=== PATIENT | female | born 1980 | race Caucasian/White ===

== ENCOUNTER → 2018-05-27 | Outpatient (CLI) | payer OTHER | LOC: FIMAGING 09:22 | PROVIDERS: ATTEND Advanced Practice Midwife | DX: O44.43 Low lying placenta NOS or without hemorrhage, third trimester (principal); Z3A.36 36 weeks gestation of pregnancy ==

== ENCOUNTER 2018-07-07 19:58 | Inpatient (IN) | payer OTHER ==
[2018-07-07] MEDS ORDERED: OLIVE OIL 118 ML BTL ONE (20:04)
[2018-07-07] MEDS ORDERED: LIDOCAINE 1% 300 MG/30 ML SDV ONE (20:04)
[2018-07-07] MEDS ORDERED: MISOPROSTOL 200 MCG TAB ONE (20:05)
[2018-07-07] MEDS ORDERED: AMMONIA AROMATIC 1 EACH AMP IH ONE (20:05)
[2018-07-07] MEDS ORDERED: OXYTOCIN 10 UNIT/ML VIAL ONE (20:05)
[2018-07-07] MEDS ORDERED: TERBUTALINE SULFATE 1 MG/ML VIAL ONE (20:05)
[2018-07-07] MEDS ORDERED: MISOPROSTOL 200 MCG TAB PR PRN (20:09)
[2018-07-07] MEDS ORDERED: TERBUTALINE SULFATE 1 MG/ML VIAL IV PRN (20:09)
[2018-07-07] MEDS ORDERED: IBUPROFEN 600 MG TAB PO PRN (20:09)
[2018-07-07] MEDS ORDERED: EPSOM SALT 454 GM TP PRN (20:09)
[2018-07-07] MEDS ORDERED: LIDOCAINE 1% 300 MG/30 ML SDV SC PRN (20:09)
[2018-07-07] MEDS ORDERED: LR 1,000 ML IV PRN (20:09)
[2018-07-07] MEDS ORDERED: OXYTOCIN/RINGERS LACTATE 1,000 ML IV PRN (20:09)
[2018-07-07] MEDS ORDERED: OLIVE OIL 118 ML BTL MISC PRN (20:09)
--- NOTE | 2018-07-07 20:33 | PDGENHP ---
History and Physical History and Physical: CARE: [facility] HPI: Patient is a 37 yo G 1 P 0 @ 40.5 weeks who is transferring to [facility] from [facility]. She entered into labor at 0230 on 07/07 and progressed well to complete at 1535 this afternoon. She has been pushing intermittently for past 4 hours with little descent. She presents to L&D for labor epidural for exhaustion. EDC: 07/02/18 which is based on LMP: 09/25/17 which is known and consistent with Ultrasound at 10 weeks. Her is complicated by: AMA >36 weeks. Review of Systems: Constitutional: Denies any fever, chills, or fatigue HEENT: denies any visual changes, difficulty swallowing, hearing loss Cardiovascular: Denies any chest pain, palpitations, leg swelling Respiratory: denies any cough, wheezing, or shortness of breathe GI: Denies any nausea, vomiting, diarrhea, constipation : denies any dysuria, urgency, frequency, vaginal bleeding Musculoskeletal: denies any muscle or bone pain Skin: denies any rashes Neuro: denies any headache, seizures, lightheadedness, dizziness, or loss of consciousness Psychiatric: denies any depression, anxiety, or SI/HI thoughts HISTORY: Previous OB history: nullip Social history: , manufacturing director Family history: MGM breast, liver CA, brother Anxiety, MGF heart disease, mother HTN Past medical history: uterine polyps Past surgical history: lumpectomy R breast benign, polypectomy/D&C, appendectomy Medications: PNV, Vit D, DHA Allergies (list reaction): NKDA LABS: Rh: O+ ABS: Neg Rubella: Immune HbsAg: NR HIV: NR VDRL: NR 1hr: 89 GC: Neg Chlamydia: Neg Pap: 2017 Normal, HR HPV GBS: Neg BMI: (prepreg) <30 PHYSICAL EXAM: Constitutional: WN, A&Ox3 HEENT: normocephalic atraumatic, supple Heart: RRR, no murmur Chest: CTA-B Skin: warm, dry, intact Abdomen: Soft, nontender, gravid SVE: 10/100/0 approximately 2 hours ago at [facility] Extremities: trace edema, negative homans sign Neuro: grossly normal Psych: normal affect assessment: FHT baseline 150, - accels, occasional late decels, mod variability, cat 2 Contractions: toco q 5-7 Assessment: 1) 37 yo G 1 P 0 with IUP@ 40.5 2) spontaneous onset labor 3) GBS neg 4) Cat 2 FHR tracing Plan: 1) Admit to L&D 2) epidural anesthesia 3) pitocin augmentation if necessary 4) anticipate , Dr. Sifuentes aware.
[2018-07-07] MEDS ORDERED: BUPIVACAINE 0.25% 30 ML SDV ONE (20:45)
[2018-07-07] MEDS ORDERED: PHENYLEPHRINE HCL 100 MCG/ML SYR ONE (20:46)
[2018-07-07 21:06] LABS: PLATELET COUNT 130 10^3/uL (150-400)
[2018-07-07] MEDS ORDERED: OXYTOCIN/RINGERS LACTATE 30 UNIT/500 ML BAG IV ONE (21:59)
[2018-07-07] MEDS ORDERED: OXYTOCIN/LR *STANDARD DOSE PROTOCOL IV SCH (22:30)
[2018-07-07] MEDS ORDERED: DOCUSATE SODIUM 100 MG CAP PO PRN (23:10)
[2018-07-07] MEDS ORDERED: HYDROCORTISONE 0.5% CREAM TP PRN (23:10)
--- NOTE | 2018-07-07 23:15 | OBDEL ---
Info Type: Vaginal Presentation at Delivery: Vertex (compound hand presentation) L&D Analgesia/Anesthesia Type: None GBS+: No Indications for Delivery: Spontaneous Labor, SROM (meconium) Vaginal Delivery - Delivery Provider Delivery Physician/CNM: Delmy Calixto - Labor and Delivery Onset of Contractions Date: 07/07/18 Onset of Contractions Time: 02:30 Onset of Contractions Type: Spontaneous Rupture of Membranes Date: 07/07/18 Rupture of Membranes Time: 14:30 Rupture of Membranes Type: Spontaneous Amniotic Fluid Color: Meconium Stained Dilation Complete Date: 07/07/18 Dilation Complete Time: 16:30 Placenta Delivery Date: 07/07/18 Placenta Delivery Time: 22:37 Total Hours of Labor: 20 Laceration: 2nd Degree Repair: 3-0, Chromic Vaginal Sponge Count Correct: Yes Vaginal Needle Count Correct: Yes Vaginal Sweep Performed: Yes Delivery Events: Retained Placenta (manually removed, velementous insertion of cord) Data VEENA: 07/01/18 Gestational Age: 40 week(s) and 6 day(s) Mata Delivery Date: 07/07/18 Delivery Time: 22:24 Sex of : Male Score (1 Min): 8 Score (5 Min): 9 ICD10 Worksheet Patient Problems: Problems Problem Status Onset (normal spontaneous vaginal delivery) Acute Prolonged labor with first Acute Term Acute - ICD10 Problem Qualifiers (1) (normal spontaneous vaginal delivery)
[2018-07-08] MEDS: ACETAMINOPHEN 325 MG TAB PO SCH ×3 (01:00→16:34)
[2018-07-08] MEDS: IBUPROFEN 600 MG TAB PO SCH ×4 (10:02→22:55)
--- NOTE | 2018-07-08 16:34 | OBPP ---
Progress Note Assessment/Plan: Assessment: [id number] s/p PPD#1 Plan: routine pp care support PRN anticipate d/c home tomorrow Subjective/ Course: 07/08/18 16:34 Pt doing well, she is - working with and will start pumping to increase stimulation. She denies any heavy bleeding or pain. She reports some soreness but overall feels good. Discussed experience- pt happy. Objective: 07/07/18 20:19 Patient ABO/Rh O POSITIVE 07/07/18 20:19 Temp Pulse Resp BP Pulse Ox 35.9 C L 86 18 112/72 96 07/08/18 08:00 07/08/18 08:00 07/08/18 08:00 07/08/18 08:00 07/08/18 03:10 Uterine Position/Fundal Height: Umbilicus -2, Midline Uterine Tone: Firm
[2018-07-08 20:38] VITALS: BP 110/68
[2018-07-09] MEDS: ACETAMINOPHEN 325 MG TAB PO SCH ×4 (05:13→18:51)
[2018-07-09] MEDS: IBUPROFEN 600 MG TAB PO SCH ×3 (05:13→17:58)
--- NOTE | 2018-07-09 10:58 | OBGCSDC ---
General Delivery Information - General Info : 1 Para: 1 Abortions: 0 Type: Vaginal L&D Analgesia/Anesthesia Type: Local Admission Date: 07/07/18 Labs: Patient ABO/Rh O POSITIVE 07/07/18 20:19 Hct 32.7 % (38.0-47.0) L 07/07/18 20:19 - Hospital Course : 07/08/18 16:34 Pt doing well, she is - working with and will start pumping to increase stimulation. She denies any heavy bleeding or pain. She reports some soreness but overall feels good. Discussed experience- pt happy. 07/09/18 10:56 S) Pt doing ok- states she is having some soreness in rectum due to hemorrhoids. She overall feels good. She is having some difficulty with , has short/flat nipples. Using shield. She reports minimal bleeding and pain. She is ambulating and voiding without difficulty. O) VSS, afebrile constitutional: WNF, A&Ox3 HEENT: normocephalic, atraumatic, supple Heart: RRR, No murmur Chest: CTA-B Breasts: soft, nontender, not engorged, nipples Abdomen: Soft, nontender Uterus: Firm at U-2 Lochia: Minimal rubra Perineum: Intact, healing well Extremities: Trace edema, and negative Dipti's sign Neuro: Grossly normal A) 37 -year-old S/P PPD#2 P) Discharge home today Continue Pelvic rest x6wks Discussed danger signs (infection, preeclampsia, depression, heavy bleeding, etc ) RTO in 2/4/6 weeks Vaginal - Delivery Provider Delivery Physician/CNM: Delmy Calixto - Diagnosis Labor: Spontaneous Rupture of Membranes Type: Spontaneous Amniotic Fluid Color: Meconium Stained Laceration: 2nd Degree Repair: 3-0, Chromic Delivery Events: Retained Placenta (manually removed, velementous insertion of cord) [place] Data VEENA: 07/01/18 Gestational Age: 41 week(s) and 1 day(s) Mata Delivery Date: 07/07/18 Delivery Time: 22:24 Sex of Infant: Male Score (1 Min): 7 Score (5 Min): 8 Discharge Information - Discharge Information Prescriptions: Ibuprofen [Motrin (*)] 600 mg PO Q6H #30 tab Condition: Good
== END 2018-07-09 18:40 | disposition home or self-care (01) | DRG 807 ==
LOC: FLD 19:58 → FOB 07-08 01:16
PROVIDERS: ADMIT Advanced Practice Midwife; ATTEND Advanced Practice Midwife
DX: O75.81 Maternal exhaustion complicating labor and delivery (principal); O43.123 Velamentous insertion of umbilical cord, third trimester; O32.6XX0 Maternal care for compound presentation, not applicable or unspecified; O77.0 Labor and delivery complicated by meconium in amniotic fluid; O72.0 Third-stage hemorrhage; Z3A.40 40 weeks gestation of pregnancy; Z37.0 Single live birth
CPT/HCPCS: J2370; J2590; J3105